=== PATIENT | male | born 1980 | race Caucasian/White ===

== ENCOUNTER 2018-03-28 16:29 | Emergency (ER) | payer SELFPAY ==
[2018-03-28] MEDS ORDERED: predniSONE 20 MG TAB ONE (18:13)
--- NOTE | 2018-03-28 19:07 | RAD ---
FRONTAL AND LATERAL IMAGING CHEST 03/28/18 COMPARISON: None. HISTORY: Nasal congestion and cough. FINDINGS: Lungs are clear. Heart and mediastinal contours are unremarkable. IMPRESSION: No acute findings. POS: [facility]
== END 2018-03-28 18:58 | disposition home or self-care (01) ==
LOC: ERS 16:29
DX: J20.9 Acute bronchitis, unspecified (principal); F17.210 Nicotine dependence, cigarettes, uncomplicated
CPT/HCPCS: 71046; J7506

== ENCOUNTER 2023-08-23 19:05 | Emergency (ER) | payer OTHER, SELFPAY ==
[2023-08-23 20:21] LABS: #Basophils 0.05 10x3/uL (0.0-0.2); %Basophils 0.6 % (0.0-1.0); %Eosinophils 1.3 % (0.0-10.0); %Lymphocytes 24.2 % (21.0-51.0); %Monocytes 11.1 % (0.0-10.0); %Neutrophils 62.4 % (42.0-75.0); Hematocrit 40.1 % (42.0-52.0); Hemoglobin 11.8 g/dL (14.0-18.0); Mean Corpuscular HGB CONC 29.4 g/dL (32.0-36.0); Mean Corpuscular Hemoglobin 24.3 pg (27.0-31.0); Mean Corpuscular Volume 82.5 fL (78.0-98.0); Mean Platelet Volume 9.7 fL (7.4-10.4); Platelet Count 392 10x3/uL (130-400); RBC Distribution Width 16.9 % (11.5-14.5); Red Blood Cell (RBC) Count 4.86 mill/uL (4.70-6.10)
[2023-08-23 20:41] LABS: ALT (SGPT) 25 U/L (8-55); AST (SGOT) 25 U/L (5-34); Albumin 3.2 g/dL (3.5-5.0); Alkaline Phosphatase 108 U/L (40-110); Anion Gap 15 mmol/L (10-20); BUN (Urea Nitrogen) 24 mg/dL (8.9-20.6); Bilirubin, Total 0.2 mg/dL (0.2-1.2); Calc. Creatinine Clearance 0 mL/min (70-130); Calcium 8.6 mg/dL (7.8-10.44); Carbon Dioxide 24 mmol/L (22-29); Chloride 106 mmol/L (98-107); Estimated GFR 52; Globulin 3.8 g/dL (2.4-3.5); Glucose 119 mg/dL (70-105); Potassium 4.9 mmol/L (3.5-5.1); Sodium 140 mmol/L (136-145)
== END 2023-08-23 21:54 | disposition left against medical advice (07) ==
LOC: ERS 19:05
DX: Z53.21 Procedure and treatment not carried out due to patient leaving prior to being seen by health care provider (principal)
CPT/HCPCS: 36415; 71045; 80053; 83880; 84484; 85025

== ENCOUNTER 2023-08-24 16:36 | Inpatient (IN) | payer OTHER, SELFPAY ==
[2023-08-24 17:39] LABS: #Basophils 0.03 10x3/uL (0.0-0.2); %Basophils 0.4 % (0.0-1.0); %Eosinophils 1.8 % (0.0-10.0); %Lymphocytes 24.7 % (21.0-51.0); %Monocytes 10.8 % (0.0-10.0); Hematocrit 37.4 % (42.0-52.0); Hemoglobin 11.3 g/dL (14.0-18.0); Mean Corpuscular HGB CONC 30.2 g/dL (32.0-36.0); Mean Corpuscular Hemoglobin 24.8 pg (27.0-31.0); Mean Platelet Volume 9.7 fL (7.4-10.4); Platelet Count 346 10x3/uL (130-400); RBC Distribution Width 16.8 % (11.5-14.5); Red Blood Cell (RBC) Count 4.56 mill/uL (4.70-6.10)
[2023-08-24 17:53] LABS: ALT (SGPT) 24 U/L (8-55); AST (SGOT) 24 U/L (5-34); Alkaline Phosphatase 114 U/L (40-110); Anion Gap 16 mmol/L (10-20); BUN (Urea Nitrogen) 22 mg/dL (8.9-20.6); Bilirubin, Total 0.2 mg/dL (0.2-1.2); Calc. Creatinine Clearance 0 mL/min (70-130); Calcium 8.7 mg/dL (7.8-10.44); Carbon Dioxide 23 mmol/L (22-29); Chloride 108 mmol/L (98-107); Estimated GFR 53; Globulin 3.7 g/dL (2.4-3.5); Glucose 118 mg/dL (70-105); Potassium 5.2 mmol/L (3.5-5.1); Protein, Total 6.7 g/dL (6.0-8.3); Sodium 142 mmol/L (136-145)
[2023-08-24 17:59] LABS: Troponin I 0.081 ng/mL (< 0.028)
[2023-08-24] MEDS ORDERED: Nitroglycerin 0.4 MG TAB 1 EACH ONE (18:03)
[2023-08-24] MEDS ORDERED: Aspirin Chewable 81 MG TAB ONE (18:04)
[2023-08-24] MEDS ORDERED: Furosemide 20 MG (2 mL) VIAL ONE (18:31)
[2023-08-24] MEDS ORDERED: Furosemide 40 MG (4 mL) VIAL ONE (18:31)
[2023-08-24] MEDS ORDERED: Nitroglycerin 2% Ointment 1 INCH/1 GM Packet ONE (18:32)
[2023-08-24] MEDS ORDERED: Acetaminophen 650 MG Suppository PR PRN (18:43)
[2023-08-24] MEDS ORDERED: Ondansetron PF 4 MG/2 ML Vial IVP PRN (18:43)
[2023-08-24] MEDS ORDERED: Ondansetron ODT 4 MG TAB PO PRN (18:43)
[2023-08-24] MEDS ORDERED: Nitroglycerin 0.4 MG TAB (25 Tab Bottle) SL PRN (19:01)
[2023-08-24] MEDS ORDERED: Ipratropium/Albuterol 3 ML NEB NEB PRN (19:27)
[2023-08-24] MEDS ORDERED: Famotidine 20 MG TAB PO SCH (21:00)
[2023-08-24 21:05] VITALS: BMI 57.0
[2023-08-24 21:10] LABS: Troponin I 0.082 ng/mL (< 0.028)
[2023-08-24] MEDS: Ipratropium/Albuterol 3 ML NEB NEB SCH (21:21)
[2023-08-24] MEDS: Nicotine 14 MG PATCH TD SCH (22:09)
[2023-08-24] MEDS: Melatonin 3 MG TAB PO PRN (22:09)
[2023-08-24] MEDS: Colchicine 0.6 MG TAB PO SCH (22:09)
[2023-08-24] MEDS: Heparin 5,000 UNITS/ML VIAL SC SCH (22:10)
[2023-08-24] MEDS: hydrOXYzine 25 MG TAB PO SCH (22:10)
[2023-08-24] MEDS: Pantoprazole DR 40 MG TAB PO SCH (22:34)
[2023-08-24] MEDS: Nitroglycerin 2% Ointment 1 INCH/1 GM Packet TOP SCH (22:34)
[2023-08-24 23:11] LABS: Bilirubin Negative (Negative); Blood, Urine Negative (Negative); Glucose, Urine (Dipstick) Negative (Negative); Ketone, Urine Negative (Negative); Leukocyte Negative (Negative); Nitrite Negative (Negative); Protein, Urine (Dipstick) Negative (Neg-Trace); Urobilinogen 0.2 mg/dL (Less than 2)
[2023-08-24 23:15] LABS: Clarity Clear (Clear)
[2023-08-24 23:17] LABS: Bacteria/HPF None Seen HPF (None Seen); CAUTI Indications for Culture Dysuria,urgency,freq; RBC/HPF 0-3 HPF (0-3); Squamous Epithelial None Seen HPF (0-3); WBC/HPF None Seen HPF (0-3)
[2023-08-24 23:24] LABS: Urine Culture Reflex No No
[2023-08-25] MEDS: Labetalol HCl 100 MG/20 ML VIAL SLOW IVP PRN (01:02)
[2023-08-25 05:25] LABS: Hemoglobin A1c 6.2 % (4.0-6.0)
[2023-08-25 05:57] LABS: Anion Gap 13 mmol/L (10-20); BUN (Urea Nitrogen) 21 mg/dL (8.9-20.6); Calc. Creatinine Clearance 155 mL/min (70-130); Calcium 8.9 mg/dL (7.8-10.44); Carbon Dioxide 27 mmol/L (22-29); Cardiac Risk 3.6 (Less than 4.5); Chloride 103 mmol/L (98-107); Cholesterol 157 mg/dl (< 200 Desired); Estimated GFR 51; Glucose 98 mg/dL (70-105); HDL Cholesterol 44 mg/dL (>60 Neg Risk); LDL Cholesterol, Calculated 99 mg/dL; Potassium 4.7 mmol/L (3.5-5.1); Sodium 138 mmol/L (136-145); Triglycerides 71 mg/dL (Less than 150)
[2023-08-25] MEDS: Furosemide 40 MG (4 mL) VIAL SLOW IVP SCH (06:11)
[2023-08-25] MEDS: hydrALAZINE 20 MG/ML VIAL SLOW IVP PRN (08:25)
[2023-08-25] MEDS: Pantoprazole DR 40 MG TAB PO SCH (08:25)
[2023-08-25] MEDS: Aspirin Chewable 81 MG TAB PO SCH (08:25)
[2023-08-25] MEDS: NIFEdipine XL 60 MG ER.TAB PO SCH (10:19)
[2023-08-25] MEDS: Metoprolol Tartrate 50 MG TAB PO SCH (10:19)
[2023-08-25] MEDS: Lisinopril 10 MG TAB PO SCH (10:19)
[2023-08-25] MEDS: Non-Formulary Item 1 EACH (Omeprazole Magnesium [Omeprazole Magnesium] 20 MG Tablet.Dr) PO SCH (10:21)
[2023-08-25 14:22] LABS: Amphetamine Detected (NotDetected); Barbiturates Screen Not Detected (NotDetected); Benzodiazepine Screen Not Detected (NotDetected); Cocaine Metabolite Screen Not Detected (NotDetected); Methadone Not Detected (NotDetected); Methamphetamine Detected (NotDetected); Opiate Screen Not Detected (NotDetected); Oxycodone Screen Not Detected (NotDetected); Phencyclidine (PCP) Not Detected (NotDetected); THC/Cannabinoid Screen Not Detected (NotDetected); Tricyclic Screen Not Detected (NotDetected)
[2023-08-25] MEDS: Acetaminophen 325 MG TAB PO PRN (19:57)
[2023-08-25] MEDS: ALPRAZolam 0.25 MG TAB PO PRN (19:57)
[2023-08-25] MEDS: Metoprolol Tartrate 25 MG TAB PO SCH (19:58)
[2023-08-26 06:11] LABS: #Basophils 0.04 10x3/uL (0.0-0.2); %Basophils 0.4 % (0.0-1.0); %Eosinophils 1.4 % (0.0-10.0); %Lymphocytes 32.6 % (21.0-51.0); %Monocytes 12.5 % (0.0-10.0); %Neutrophils 52.9 % (42.0-75.0); Hematocrit 39.4 % (42.0-52.0); Hemoglobin 11.6 g/dL (14.0-18.0); Mean Corpuscular HGB CONC 29.4 g/dL (32.0-36.0); Mean Corpuscular Hemoglobin 23.7 pg (27.0-31.0); Mean Corpuscular Volume 80.6 fL (78.0-98.0); Mean Platelet Volume 10.1 fL (7.4-10.4); Platelet Count 374 10x3/uL (130-400); RBC Distribution Width 16.9 % (11.5-14.5); Red Blood Cell (RBC) Count 4.89 mill/uL (4.70-6.10)
[2023-08-26 06:24] LABS: Anion Gap 14 mmol/L (10-20); BUN (Urea Nitrogen) 26 mg/dL (8.9-20.6); Calc. Creatinine Clearance 143 mL/min (70-130); Calcium 8.8 mg/dL (7.8-10.44); Carbon Dioxide 25 mmol/L (22-29); Chloride 103 mmol/L (98-107); Estimated GFR 47; Glucose 95 mg/dL (70-105); Potassium 4.3 mmol/L (3.5-5.1); Sodium 138 mmol/L (136-145)
[2023-08-26] MEDS: Lisinopril 2.5 MG TAB PO SCH (10:01)
[2023-08-26] MEDS: Furosemide 20 MG TAB PO SCH (10:02)
[2023-08-26] MEDS: NIFEdipine XL 60 MG ER.TAB PO SCH (20:16)
[2023-08-27 04:47] LABS: Anion Gap 11 mmol/L (10-20); BUN (Urea Nitrogen) 31 mg/dL (8.9-20.6); Calc. Creatinine Clearance 158 mL/min (70-130); Calcium 8.8 mg/dL (7.8-10.44); Carbon Dioxide 29 mmol/L (22-29); Chloride 100 mmol/L (98-107); Estimated GFR 53; Glucose 109 mg/dL (70-105); Potassium 4.4 mmol/L (3.5-5.1); Sodium 136 mmol/L (136-145)
[2023-08-27] MEDS: Colchicine 0.6 MG TAB PO SCH (08:44)
[2023-08-27 12:17] VITALS: BP 162/98; TEMP 97.6
== END 2023-08-27 14:19 | disposition home or self-care (01) | DRG 291 ==
LOC: ERS 16:36 → 2NO 18:48
PROVIDERS: ADMIT Family Medicine; ATTEND Internal Medicine
PROC: 5A09357 Assistance with Respiratory Ventilation, Less than 24 Consecutive Hours, Continuous Positive Airway Pressure (ICD-10-PCS; principal; 2023-08-24)
DX: I11.0 Hypertensive heart disease with heart failure (principal); I50.33 Acute on chronic diastolic (congestive) heart failure; J96.01 Acute respiratory failure with hypoxia; N17.9 Acute kidney failure, unspecified; I24.89 Other forms of acute ischemic heart disease; Z68.43 Body mass index [BMI] 50.0-59.9, adult; M10.9 Gout, unspecified; I5A Non-ischemic myocardial injury (non-traumatic); G47.33 Obstructive sleep apnea (adult) (pediatric); F17.210 Nicotine dependence, cigarettes, uncomplicated; E66.01 Morbid (severe) obesity due to excess calories; I16.0 Hypertensive urgency; E87.6 Hypokalemia; F19.10 Other psychoactive substance abuse, uncomplicated; F41.9 Anxiety disorder, unspecified; F12.10 Cannabis abuse, uncomplicated; Z82.49 Family history of ischemic heart disease and other diseases of the circulatory system; Z91.141 Patient's other noncompliance with medication regimen due to financial hardship; Z79.899 Other long term (current) drug therapy
CPT/HCPCS: 36415; 71045; 80048; 80053; 80061; 80306; 81001; 83036; 83880; 84443; 84484; 85025; 93005; 93306; 93798; 94640; 94660; 94760; 96374; J0360; J1644; J1940; J7620

== ENCOUNTER 2023-09-24 23:09 | Observation (INO) | payer OTHER ==
[2023-09-25 00:05] LABS: #Basophils 0.04 10x3/uL (0.0-0.2); %Basophils 0.4 % (0.0-1.0); %Eosinophils 1.3 % (0.0-10.0); %Lymphocytes 21.1 % (21.0-51.0); %Monocytes 7.8 % (0.0-10.0); %Neutrophils 69.2 % (42.0-75.0); Hematocrit 40.7 % (42.0-52.0); Hemoglobin 12.2 g/dL (14.0-18.0); Mean Corpuscular Volume 83.4 fL (78.0-98.0); Mean Platelet Volume 10.2 fL (7.4-10.4); Platelet Count 323 10x3/uL (130-400); RBC Distribution Width 18.3 % (11.5-14.5); Red Blood Cell (RBC) Count 4.88 mill/uL (4.70-6.10)
[2023-09-25 00:23] LABS: ALT (SGPT) 23 U/L (8-55); AST (SGOT) 20 U/L (5-34); Albumin 3.2 g/dL (3.5-5.0); Alkaline Phosphatase 97 U/L (40-110); Anion Gap 14 mmol/L (10-20); BUN (Urea Nitrogen) 28 mg/dL (8.9-20.6); Bilirubin, Total 0.3 mg/dL (0.2-1.2); Calc. Creatinine Clearance 0 mL/min (70-130); Calcium 8.7 mg/dL (7.8-10.44); Carbon Dioxide 19 mmol/L (22-29); Chloride 110 mmol/L (98-107); Estimated GFR 41; Globulin 3.5 g/dL (2.4-3.5); Glucose 126 mg/dL (70-105); Potassium 4.3 mmol/L (3.5-5.1); Protein, Total 6.7 g/dL (6.0-8.3); Sodium 139 mmol/L (136-145)
[2023-09-25 00:26] LABS: Troponin I 0.058 ng/mL (< 0.028)
[2023-09-25] MEDS ORDERED: Labetalol HCl 100 MG/20 ML VIAL ONE (01:37)
[2023-09-25] MEDS ORDERED: Ondansetron PF 4 MG/2 ML Vial ONE (02:14)
[2023-09-25 03:12] LABS: Acetaminophen Less than 10 mcg/mL (10.0-30.0); Alcohol Less than 10.0 mg/dL (Less than 10); Salicylate Less than 8.0 mg/dL (15.0-30.0)
[2023-09-25] MEDS ORDERED: Acetaminophen 650 MG Suppository PR PRN (03:13)
[2023-09-25] MEDS ORDERED: traMADol HCl 50 MG TAB PO PRN (03:13)
[2023-09-25 03:15] LABS: Troponin I 0.069 ng/mL (< 0.028)
[2023-09-25] MEDS ORDERED: Ipratropium/Albuterol 3 ML NEB NEB PRN (03:17)
[2023-09-25] MEDS ORDERED: Melatonin 3 MG TAB PO PRN (03:17)
[2023-09-25] MEDS ORDERED: Acetaminophen 500 MG TAB PO PRN (03:20)
[2023-09-25 04:38] LABS: Magnesium 2.3 mg/dL (1.6-2.6)
[2023-09-25] MEDS: Nicotine 14 MG PATCH TD SCH (06:00)
[2023-09-25] MEDS: Sodium Chloride 0.9% 500 ML IV SCH (06:17)
[2023-09-25] MEDS: Sodium Chloride 0.9% 250 ML IV SCH (06:17)
[2023-09-25 06:23] VITALS: BMI 55.4
[2023-09-25 07:20] LABS: #Basophils 0.04 10x3/uL (0.0-0.2); %Basophils 0.4 % (0.0-1.0); %Eosinophils 1.7 % (0.0-10.0); %Lymphocytes 29.6 % (21.0-51.0); %Monocytes 10.4 % (0.0-10.0); %Neutrophils 57.6 % (42.0-75.0); Hematocrit 42.4 % (42.0-52.0); Hemoglobin 12.6 g/dL (14.0-18.0); Mean Corpuscular HGB CONC 29.7 g/dL (32.0-36.0); Mean Corpuscular Hemoglobin 24.4 pg (27.0-31.0); Mean Corpuscular Volume 82.2 fL (78.0-98.0); Mean Platelet Volume 10.2 fL (7.4-10.4); Platelet Count 320 10x3/uL (130-400); RBC Distribution Width 18.1 % (11.5-14.5); Red Blood Cell (RBC) Count 5.16 mill/uL (4.70-6.10)
[2023-09-25 07:42] LABS: Anion Gap 16 mmol/L (10-20); BUN (Urea Nitrogen) 28 mg/dL (8.9-20.6); Calc. Creatinine Clearance 134 mL/min (70-130); Calcium 8.7 mg/dL (7.8-10.44); Carbon Dioxide 20 mmol/L (22-29); Chloride 109 mmol/L (98-107); Estimated GFR 45; Glucose 162 mg/dL (70-105); Potassium 4.7 mmol/L (3.5-5.1); Sodium 140 mmol/L (136-145)
[2023-09-25 07:45] LABS: Troponin I 0.061 ng/mL (< 0.028)
[2023-09-25] MEDS ORDERED: Metoprolol Tartrate 25 MG TAB ONE (09:10)
[2023-09-25] MEDS ORDERED: Aspirin 81 mg Enteric Coated Tablet ONE (09:10)
[2023-09-25] MEDS ORDERED: Atorvastatin Calcium 10 MG TAB ONE (09:11)
[2023-09-25] MEDS ORDERED: Pantoprazole DR 40 MG TAB ONE (09:11)
[2023-09-25] MEDS ORDERED: Heparin 5,000 UNITS/ML VIAL ONE (09:11)
[2023-09-25] MEDS ORDERED: Lisinopril 5 MG TAB ONE (09:11)
[2023-09-25] MEDS: Aspirin Chewable 81 MG TAB PO SCH (09:50)
[2023-09-25] MEDS: Atorvastatin Calcium 10 MG TAB PO SCH (09:50)
[2023-09-25] MEDS: Heparin 5,000 UNITS/ML VIAL SC SCH (09:51)
[2023-09-25] MEDS: NIFEdipine XL 60 MG ER.TAB PO SCH (09:51)
[2023-09-25] MEDS: Metoprolol Tartrate 25 MG TAB PO SCH (09:51)
[2023-09-25] MEDS: Pantoprazole DR 40 MG TAB PO SCH (09:51)
[2023-09-25] MEDS: Lisinopril 2.5 MG TAB PO SCH (09:51)
[2023-09-25] MEDS ORDERED: Lorazepam 1 MG TAB ONE (10:56)
[2023-09-25] MEDS: Lorazepam 0.5 MG TAB PO PRN (11:02)
[2023-09-25 18:41] LABS: Influenza A by NAA Not Detected (NotDetected); Influenza B by NAA Not Detected (NotDetected); SARS-CoV-2 NAA Rapid Test Not Detected (NotDetected)
[2023-09-26] MEDS: Nicotine 14 MG PATCH TD SCH (08:38)
[2023-09-26] MEDS ORDERED: Sertraline 100 MG TAB PO SCH (09:44)
[2023-09-26] MEDS: Sertraline 25 MG TAB PO SCH (09:59)
[2023-09-26] MEDS: hydrALAZINE 25 MG TAB PO SCH (09:59)
[2023-09-26 11:20] LABS: Anion Gap 12 mmol/L (10-20); BUN (Urea Nitrogen) 28 mg/dL (8.9-20.6); BUN/Creatinine Ratio 16.67; Calc. Creatinine Clearance 151 mL/min (70-130); Calcium 8.5 mg/dL (7.8-10.44); Carbon Dioxide 25 mmol/L (22-29); Chloride 108 mmol/L (98-107); Estimated GFR 51; Glucose 95 mg/dL (70-105); Phosphorus 3.8 mg/dL (2.3-4.7); Sodium 140 mmol/L (136-145)
[2023-09-26 14:59] LABS: Amphetamine Detected (NotDetected); Barbiturates Screen Not Detected (NotDetected); Benzodiazepine Screen Not Detected (NotDetected); Cocaine Metabolite Screen Not Detected (NotDetected); Methadone Not Detected (NotDetected); Methamphetamine Detected (NotDetected); Opiate Screen Not Detected (NotDetected); Oxycodone Screen Not Detected (NotDetected); Phencyclidine (PCP) Not Detected (NotDetected); THC/Cannabinoid Screen Detected (NotDetected); Tricyclic Screen Not Detected (NotDetected)
[2023-09-27 04:52] LABS: Anion Gap 13 mmol/L (10-20); BUN (Urea Nitrogen) 25 mg/dL (8.9-20.6); Calc. Creatinine Clearance 162 mL/min (70-130); Calcium 8.8 mg/dL (7.8-10.44); Carbon Dioxide 25 mmol/L (22-29); Chloride 107 mmol/L (98-107); Estimated GFR 55; Glucose 116 mg/dL (70-105); Sodium 140 mmol/L (136-145)
[2023-09-27] MEDS: Sertraline 25 MG TAB PO SCH (08:59)
[2023-09-27 16:14] VITALS: BP 157/84; TEMP 97.6
== END 2023-09-27 17:52 | disposition home or self-care (01) ==
LOC: ERS 23:09 → ERHOLD 09-25 02:37 → 2SW 09-25 11:58
PROVIDERS: ADMIT Internal Medicine; ATTEND Internal Medicine
DX: I16.0 Hypertensive urgency (principal); N17.9 Acute kidney failure, unspecified; I5A Non-ischemic myocardial injury (non-traumatic); I13.0 Hypertensive heart and chronic kidney disease with heart failure and stage 1 through stage 4 chronic kidney disease, or unspecified chronic kidney disease; I50.30 Unspecified diastolic (congestive) heart failure; N18.31 Chronic kidney disease, stage 3a; F41.9 Anxiety disorder, unspecified; M10.9 Gout, unspecified; G47.33 Obstructive sleep apnea (adult) (pediatric); F17.210 Nicotine dependence, cigarettes, uncomplicated; Z79.899 Other long term (current) drug therapy; Z79.82 Long term (current) use of aspirin
CPT/HCPCS: 36415; 36416; 71045; 80048; 80053; 80069; 80306; 80307; 83735; 83880; 84484; 85025; 85379; 93005; 94660; 96372; 96374; G0378; J1644; J2405; J7030; J7050

== ENCOUNTER 2023-12-03 17:24 | Inpatient (IN) | payer OTHER ==
[2023-12-03 18:14] LABS: #Basophils 0.09 10x3/uL (0.0-0.2); %Basophils 0.6 % (0.0-1.0); %Eosinophils 0.5 % (0.0-10.0); %Lymphocytes 13.6 % (21.0-51.0); %Monocytes 8.5 % (0.0-10.0); %Neutrophils 75.9 % (42.0-75.0); Hematocrit 45.5 % (42.0-52.0); Mean Corpuscular HGB CONC 30.8 g/dL (32.0-36.0); Mean Corpuscular Hemoglobin 26.7 pg (27.0-31.0); Mean Corpuscular Volume 86.7 fL (78.0-98.0); Mean Platelet Volume 9.5 fL (7.4-10.4); Platelet Count 447 10x3/uL (130-400); RBC Distribution Width 19.6 % (11.5-14.5); Red Blood Cell (RBC) Count 5.25 mill/uL (4.70-6.10)
[2023-12-03] MEDS ORDERED: Ondansetron PF 4 MG/2 ML Vial ONE (18:25)
[2023-12-03] MEDS ORDERED: Ketorolac Tromethamine 30 MG (1 mL) VIAL ONE (18:25)
[2023-12-03] MEDS ORDERED: Pantoprazole 40 MG VIAL ONE (18:26)
[2023-12-03] MEDS ORDERED: Famotidine/PF 20 mg/2ml Vial ONE (18:27)
[2023-12-03] MEDS ORDERED: Midazolam HCl 2 mg/2 ml Vial ONE (18:28)
[2023-12-03 18:50] LABS: ALT (SGPT) 31 U/L (8-55); AST (SGOT) 32 U/L (5-34); Albumin 3.7 g/dL (3.5-5.0); Alkaline Phosphatase 114 U/L (40-110); Anion Gap 19 mmol/L (10-20); BUN (Urea Nitrogen) 66 mg/dL (8.9-20.6); Bilirubin, Total 0.3 mg/dL (0.2-1.2); Calc. Creatinine Clearance 0 mL/min (70-130); Calcium 9.6 mg/dL (7.8-10.44); Carbon Dioxide 20 mmol/L (22-29); Chloride 107 mmol/L (98-107); Estimated GFR 15; Globulin 4.2 g/dL (2.4-3.5); Glucose 99 mg/dL (70-105); Lipase 56 U/L (8-78); Potassium 5.4 mmol/L (3.5-5.1); Protein, Total 7.9 g/dL (6.0-8.3); Sodium 141 mmol/L (136-145)
[2023-12-03] MEDS ORDERED: Ondansetron PF 4 MG/2 ML Vial IVP PRN (21:12)
[2023-12-03 21:41] VITALS: BMI 53.5
[2023-12-03] MEDS: Dicyclomine 20 MG TAB PO SCH (22:32)
[2023-12-03] MEDS: Sodium Chloride 0.9% 1,000 ML IV SCH (22:32)
[2023-12-03] MEDS: Albumin 25% 25 GM (100 mL) BOT IVPB SCH (22:32)
[2023-12-03] MEDS: Morphine 2 MG/ML VIAL SLOW IVP PRN (23:38)
[2023-12-04 06:53] LABS: #Basophils 0.05 10x3/uL (0.0-0.2); %Basophils 0.5 % (0.0-1.0); %Eosinophils 1.3 % (0.0-10.0); %Monocytes 8.9 % (0.0-10.0); %Neutrophils 67.8 % (42.0-75.0); Hematocrit 38.8 % (42.0-52.0); Hemoglobin 11.9 g/dL (14.0-18.0); Mean Corpuscular HGB CONC 30.7 g/dL (32.0-36.0); Mean Corpuscular Hemoglobin 26.9 pg (27.0-31.0); Mean Corpuscular Volume 87.8 fL (78.0-98.0); Mean Platelet Volume 9.6 fL (7.4-10.4); Platelet Count 324 10x3/uL (130-400); RBC Distribution Width 19.3 % (11.5-14.5); Red Blood Cell (RBC) Count 4.42 mill/uL (4.70-6.10)
[2023-12-04 07:13] LABS: ALT (SGPT) 24 U/L (8-55); AST (SGOT) 23 U/L (5-34); Albumin 3.2 g/dL (3.5-5.0); Alkaline Phosphatase 87 U/L (40-110); Anion Gap 15 mmol/L (10-20); BUN (Urea Nitrogen) 67 mg/dL (8.9-20.6); Bilirubin, Total 0.4 mg/dL (0.2-1.2); Calc. Creatinine Clearance 55 mL/min (70-130); Calcium 8.2 mg/dL (7.8-10.44); Carbon Dioxide 20 mmol/L (22-29); Chloride 110 mmol/L (98-107); Estimated GFR 16; Globulin 3.4 g/dL (2.4-3.5); Glucose 97 mg/dL (70-105); Magnesium 2.2 mg/dL (1.6-2.6); Potassium 4.8 mmol/L (3.5-5.1); Protein, Total 6.6 g/dL (6.0-8.3); Sodium 140 mmol/L (136-145)
[2023-12-04] MEDS ORDERED: Loperamide HCl 2 MG CAP PO PRN (09:00)
[2023-12-04] MEDS: Famotidine/PF 20 mg/2ml Vial SLOW IVP SCH (10:39)
[2023-12-04] MEDS: Enoxaparin 30 MG (0.3 mL) SYRINGE SC SCH (10:40)
[2023-12-04] MEDS: Sertraline 25 MG TAB PO SCH (10:40)
[2023-12-04] MEDS: Atorvastatin Calcium 10 MG TAB PO SCH (10:40)
[2023-12-04] MEDS: Aspirin Chewable 81 MG TAB PO SCH (10:40)
[2023-12-04] MEDS: Pantoprazole DR 40 MG TAB PO SCH (10:40)
[2023-12-04] MEDS: Sodium Bicarbonate 50 MEQ in Sodium Chloride 0.45% 1,000 ML IV SCH (11:08)
[2023-12-04] MEDS: Acetaminophen 325 MG TAB PO PRN (13:53)
[2023-12-04 15:06] LABS: Bacteria/HPF None Seen HPF (None Seen); Bilirubin Negative (Negative); Blood, Urine Negative (Negative); Clarity Clear (Clear); Glucose, Urine (Dipstick) Normal (Negative); Ketone, Urine Negative (Negative); Leukocyte Negative Leu/uL (Negative); Nitrite Negative (Negative); Protein, Urine (Dipstick) Negative (Neg-Trace); RBC/HPF 0-3 HPF (0-3); Specific Gravity, Urine 1.013 (1.002-1.036); Squamous Epithelial 0-3 HPF (0-3); Urobilinogen Normal mg/dL (Less than 2); WBC/HPF 0-3 HPF (0-3)
[2023-12-04] MEDS: Amlodipine 5 MG TAB PO SCH (15:32)
[2023-12-04 15:40] LABS: Creatinine, Urine 93.84 mg/dL (63-166); Protein, Urine Random Quant Less than 10 mg/dL (1-14); Sodium, Urine 97 mmol/L (Not Available); Urea Nitrogen, Random Urine 581 mg/dl
[2023-12-04] MEDS: Calcium Carbonate 500 MG ChewTAB PO PRN (16:56)
[2023-12-04] MEDS: QUEtiapine 25 MG TAB PO SCH (22:31)
[2023-12-04] MEDS: traMADol HCl 50 MG TAB PO PRN (22:32)
[2023-12-05 07:32] LABS: #Basophils 0.04 10x3/uL (0.0-0.2); %Basophils 0.4 % (0.0-1.0); %Eosinophils 1.4 % (0.0-10.0); %Lymphocytes 14.9 % (21.0-51.0); %Monocytes 10.4 % (0.0-10.0); %Neutrophils 72.5 % (42.0-75.0); Hematocrit 36.2 % (42.0-52.0); Mean Corpuscular HGB CONC 30.4 g/dL (32.0-36.0); Mean Corpuscular Hemoglobin 26.6 pg (27.0-31.0); Mean Corpuscular Volume 87.4 fL (78.0-98.0); Mean Platelet Volume 9.9 fL (7.4-10.4); Platelet Count 293 10x3/uL (130-400); RBC Distribution Width 18.4 % (11.5-14.5); Red Blood Cell (RBC) Count 4.14 mill/uL (4.70-6.10)
[2023-12-05 08:00] LABS: Anion Gap 14 mmol/L (10-20); BUN (Urea Nitrogen) 41 mg/dL (8.9-20.6); Calc. Creatinine Clearance 125 mL/min (70-130); Calcium 8.7 mg/dL (7.8-10.44); Carbon Dioxide 20 mmol/L (22-29); Chloride 108 mmol/L (98-107); Estimated GFR 42; Glucose 98 mg/dL (70-105); Iron 33 ug/dL (65-175); Iron Binding Capacity, Total 314 mcg/dL (261-462); Potassium 4.5 mmol/L (3.5-5.1); Sodium 137 mmol/L (136-145)
[2023-12-05] MEDS ORDERED: Sodium Bicarbonate 150 MEQ in Dextrose 5% in Water 1,000 ML IV SCH (08:15)
[2023-12-05] MEDS ORDERED: Amlodipine 5 MG TAB PO SCH (09:00)
[2023-12-05] MEDS: Sodium Bicarbonate Tab 325 MG TAB PO SCH (09:37)
[2023-12-05] MEDS: Colchicine 0.3 MG TAB PO SCH (09:38)
[2023-12-06] MEDS: Labetalol HCl 100 MG/20 ML VIAL SLOW IVP SCH (05:37)
[2023-12-06 08:18] LABS: #Basophils 0.03 10x3/uL (0.0-0.2); %Basophils 0.3 % (0.0-1.0); %Eosinophils 0.8 % (0.0-10.0); %Lymphocytes 23.6 % (21.0-51.0); %Monocytes 12.9 % (0.0-10.0); %Neutrophils 61.6 % (42.0-75.0); Hematocrit 39.5 % (42.0-52.0); Hemoglobin 12.2 g/dL (14.0-18.0); Mean Corpuscular HGB CONC 30.9 g/dL (32.0-36.0); Mean Corpuscular Volume 87.4 fL (78.0-98.0); Mean Platelet Volume 9.9 fL (7.4-10.4); Platelet Count 318 10x3/uL (130-400); RBC Distribution Width 18.1 % (11.5-14.5); Red Blood Cell (RBC) Count 4.52 mill/uL (4.70-6.10)
[2023-12-06 09:08] LABS: Anion Gap 16 mmol/L (10-20); BUN (Urea Nitrogen) 30 mg/dL (8.9-20.6); Calc. Creatinine Clearance 170 mL/min (70-130); Calcium 9.2 mg/dL (7.8-10.44); Carbon Dioxide 22 mmol/L (22-29); Chloride 106 mmol/L (98-107); Estimated GFR 62; Glucose 90 mg/dL (70-105); Potassium 4.8 mmol/L (3.5-5.1); Sodium 139 mmol/L (136-145)
[2023-12-06] MEDS: Amlodipine 5 MG TAB PO SCH ×2 (10:15→10:16)
[2023-12-06] MEDS: SODIUM CHLORIDE 0.9% IVPB SCH (10:18)
[2023-12-06] MEDS: IRON SUCROSE COMPLEX IVPB SCH (10:18)
[2023-12-06] MEDS: predniSONE 20 MG TAB PO SCH (12:13)
[2023-12-07 05:26] LABS: #Basophils 0.04 10x3/uL (0.0-0.2); #Eosinphils Less than 0.03 10x3/uL (0.0-0.7); %Basophils 0.3 % (0.0-1.0); %Eosinophils 0.2 % (0.0-10.0); %Lymphocytes 11.9 % (21.0-51.0); %Monocytes 10.9 % (0.0-10.0); %Neutrophils 75.8 % (42.0-75.0); Hematocrit 38.8 % (42.0-52.0); Hemoglobin 12.3 g/dL (14.0-18.0); Mean Corpuscular HGB CONC 31.7 g/dL (32.0-36.0); Mean Corpuscular Volume 85.3 fL (78.0-98.0); Platelet Count 340 10x3/uL (130-400); RBC Distribution Width 17.9 % (11.5-14.5); Red Blood Cell (RBC) Count 4.55 mill/uL (4.70-6.10)
[2023-12-07 05:40] LABS: Anion Gap 15 mmol/L (10-20); BUN (Urea Nitrogen) 25 mg/dL (8.9-20.6); Calc. Creatinine Clearance 198 mL/min (70-130); Calcium 9.3 mg/dL (7.8-10.44); Carbon Dioxide 24 mmol/L (22-29); Chloride 105 mmol/L (98-107); Estimated GFR 74; Glucose 108 mg/dL (70-105); Potassium 4.6 mmol/L (3.5-5.1); Sodium 139 mmol/L (136-145)
[2023-12-07 08:47] VITALS: TEMP 97.9
[2023-12-07] MEDS: Ferrous Sulfate 325 MG TAB PO SCH (10:11)
[2023-12-07] MEDS: Amlodipine 10 MG TAB PO SCH (10:11)
[2023-12-07 13:00] VITALS: BP 160/95
== END 2023-12-07 14:18 | disposition home or self-care (01) | DRG 683 ==
LOC: ERS 17:24 → SUATTDRO 17:24 → 2SW 20:14
PROVIDERS: ADMIT Internal Medicine; ATTEND Internal Medicine
PROC: 30233J1 Transfusion of Nonautologous Serum Albumin into Peripheral Vein, Percutaneous Approach (ICD-10-PCS; principal; 2023-12-03)
PROC: 5A09357 Assistance with Respiratory Ventilation, Less than 24 Consecutive Hours, Continuous Positive Airway Pressure (ICD-10-PCS; 2023-12-04)
DX: N17.9 Acute kidney failure, unspecified (principal); E87.20 Acidosis, unspecified; I13.0 Hypertensive heart and chronic kidney disease with heart failure and stage 1 through stage 4 chronic kidney disease, or unspecified chronic kidney disease; Z68.43 Body mass index [BMI] 50.0-59.9, adult; I50.32 Chronic diastolic (congestive) heart failure; M10.9 Gout, unspecified; K21.9 Gastro-esophageal reflux disease without esophagitis; R19.7 Diarrhea, unspecified; E86.0 Dehydration; G47.33 Obstructive sleep apnea (adult) (pediatric); E66.01 Morbid (severe) obesity due to excess calories; E87.5 Hyperkalemia; N18.30 Chronic kidney disease, stage 3 unspecified; D63.1 Anemia in chronic kidney disease; F41.9 Anxiety disorder, unspecified; F17.210 Nicotine dependence, cigarettes, uncomplicated; Z79.82 Long term (current) use of aspirin; Z79.899 Other long term (current) drug therapy
CPT/HCPCS: 36415; 74176; 80048; 80053; 81001; 82040; 82570; 82728; 83540; 83550; 83690; 83735; 84156; 84300; 84540; 85025; 93005; 93010; 94660; 96361; 96374; 96375; J1650; J1756; J1885; J2250; J2272; J2405; J2470; J3490; J7030; J7512; P9047

== ENCOUNTER 2024-01-20 15:30 | Emergency (ER) | payer BC ==
[2024-01-20] MEDS ORDERED: predniSONE 20 MG TAB ONE (16:01)
[2024-01-20] MEDS ORDERED: HYDROcodone/Acetaminophen 5/325 mg Tablet ONE (16:01)
[2024-01-20 16:12] LABS: #Basophils 0.06 10x3/uL (0.0-0.2); %Basophils 0.4 % (0.0-1.0); %Eosinophils 0.4 % (0.0-10.0); %Lymphocytes 11.9 % (21.0-51.0); %Neutrophils 76.8 % (42.0-75.0); Hematocrit 45.2 % (42.0-52.0); Hemoglobin 14.7 g/dL (14.0-18.0); Mean Corpuscular HGB CONC 32.5 g/dL (32.0-36.0); Mean Corpuscular Hemoglobin 28.9 pg (27.0-31.0); Mean Platelet Volume 10.2 fL (7.4-10.4); Platelet Count 367 10x3/uL (130-400); RBC Distribution Width 15.7 % (11.5-14.5); Red Blood Cell (RBC) Count 5.08 mill/uL (4.70-6.10)
[2024-01-20 16:39] LABS: ALT (SGPT) 33 U/L (8-55); AST (SGOT) 27 U/L (5-34); Albumin 3.2 g/dL (3.5-5.0); Alkaline Phosphatase 115 U/L (40-110); Anion Gap 16 mmol/L (10-20); BUN (Urea Nitrogen) 22 mg/dL (8.9-20.6); Bilirubin, Total 0.7 mg/dL (0.2-1.2); Calc. Creatinine Clearance 0 mL/min (70-130); Calcium 9.5 mg/dL (7.8-10.44); Carbon Dioxide 25 mmol/L (22-29); Chloride 100 mmol/L (98-107); Estimated GFR 46; Globulin 4.8 g/dL (2.4-3.5); Glucose 119 mg/dL (70-105); Potassium 4.7 mmol/L (3.5-5.1); Sodium 136 mmol/L (136-145); Uric Acid 6.7 mg/dL (3.5-7.2)
[2024-01-20 16:48] LABS: CRP,High Sensitivity (Inhouse) 16.34 mg/dL (< or = 0.5)
[2024-01-20 17:48] LABS: Troponin I 0.034 ng/mL (< 0.028)
[2024-01-20] MEDS ORDERED: Ketorolac Tromethamine 30 MG (1 mL) VIAL ONE (18:46)
[2024-01-20 19:53] LABS: Troponin I 0.028 ng/mL (< 0.028)
== END 2024-01-20 21:30 | disposition home or self-care (01) ==
LOC: ERS 15:30
DX: M10.9 Gout, unspecified (principal); I12.9 Hypertensive chronic kidney disease with stage 1 through stage 4 chronic kidney disease, or unspecified chronic kidney disease; N18.9 Chronic kidney disease, unspecified; F17.210 Nicotine dependence, cigarettes, uncomplicated; F17.290 Nicotine dependence, other tobacco product, uncomplicated
CPT/HCPCS: 36415; 71045; 80053; 83605; 83880; 84484; 84550; 85025; 86141; 87040; 93005; 96361; 96374; J1885; J7512